=== PATIENT | female | born 1985 | race Caucasian/White ===

== ENCOUNTER 2020-11-01 21:53 | Observation (INO) | payer OTHER ==
[~2020-11-01] VITALS: Ht 165.1 cm; Wt 111.1 kg
[2020-11-01 23:01] VITALS: BP 116/56
== END 2020-11-01 23:46 ==
LOC: MLD 21:53
PROVIDERS: ADMIT Obstetrics & Gynecology; ATTEND Obstetrics & Gynecology
DX: O26.892 Other specified pregnancy related conditions, second trimester (principal); R19.7 Diarrhea, unspecified; O20.8 Other hemorrhage in early pregnancy; K62.5 Hemorrhage of anus and rectum; Z3A.19 19 weeks gestation of pregnancy
CPT/HCPCS: 59025; 81000; G0378